=== PATIENT | male | born 1980 | race Caucasian/White ===

== ENCOUNTER 2017-06-05 22:39 | Emergency (ER) | payer SELFPAY ==
[~2017-06-05] VITALS: Ht 182.9 cm; Wt 95.4 kg
[~2017-06-05 22:39] MED LIST: CELEBREX100 M1 OR; CIPRO500 MG OR; FLEXERIL OR; LORTAB 10 OR; LORTAB 5 OR; NAPROSYN500 MG OR; NO HOME MEDS
[2017-06-05] MEDS ORDERED: PERCOCET 5/325M1 TAB PO (23:44)
[2017-06-06 00:15] VITALS: BP 130/83
== END 2017-06-06 00:15 | disposition home or self-care (01) | DRG 563 ==
LOC: ED 22:39
PROC: 2W3DX1Z Immobilization of Left Lower Arm using Splint (ICD-10-PCS; principal; 2017-06-06)
DX: S52.602A Unspecified fracture of lower end of left ulna, initial encounter for closed fracture (principal); F17.210 Nicotine dependence, cigarettes, uncomplicated; W10.9XXA Fall (on) (from) unspecified stairs and steps, initial encounter; Y92.009 Unspecified place in unspecified non-institutional (private) residence as the place of occurrence of the external cause